=== PATIENT | male | born 1950 | race Caucasian/White ===

== ENCOUNTER → 2019-10-09 13:15 | Outpatient (POV) | payer MEDICARE, OTHER, SELFPAY | PROVIDERS: Visit Provider Nurse Practitioner Family | DX: Z00.00 Encounter for general adult medical examination without abnormal findings (principal) ==

== ENCOUNTER → 2019-12-05 14:42 | Outpatient (CLI) | payer MEDICARE, OTHER, SELFPAY | PROVIDERS: PCP Family Medicine; Visit Provider Family Medicine | DX: Z03.818 Encounter for observation for suspected exposure to other biological agents ruled out (principal) | CPT/HCPCS: U0003 ==

== ENCOUNTER 2023-11-23 10:10 | Outpatient (CLI) | payer MEDICARE, OTHER, SELFPAY ==
[2023-11-23 10:43] LABS: Basophils % 0.8 % (0.1-2.0); Eosinophils # 0.3 K/mm3 (0.0-0.4); Eosinophils % 5.5 % (0.1-12.0); Hematocrit 48.1 % (42.0-52.0); Hemoglobin 15.7 g/dL (14.1-18.0); Lymphocytes # 1.4 K/mm3 (0.7-4.5); Lymphocytes % 28.5 % (10-50); Mean Corpuscular HGB Conc 32.7 g/dL (31.8-35.4); Mean Corpuscular Hemoglobin 31.2 pg (27.0-31.2); Mean Corpuscular Volume 95.5 fl (80-94); Mean Platelet Volume 8.5 fl (7.4-10.4); Monocytes # 0.2 K/mm3 (0.1-1.0); Monocytes % 4.8 % (1.7-9.3); Neutrophils % 60.3 % (37.0-80.0); Platelet Count 165 K/mm3 (142-424); Red Blood Count 5.04 M/mm3 (4.60-6.20)
[2023-11-23 10:56] LABS: Prothrombin Time 11.2 seconds (10.1-12.5)
[2023-11-23 11:51] LABS: Alanine Aminotransferase 23 U/L (12-78); Albumin Level 4.3 g/dl (3.5-5.0); Albumin/Globulin Ratio 1.7 (1.1-1.8); Alkaline Phosphatase 74 U/L (38-126); Aspartate Amino Transferase 40 U/L (17-59); Bilirubin,Total 0.6 mg/dl (0.2-1.3); Blood Urea Nitrogen 13 mg/dl (9-20); Calcium 9.8 mg/dl (8.4-10.2); Carbon Dioxide 32 mmol/L (22.0-30.0); Chloride 101 mmol/L (98-107); Estimated Glomerular Filt Rate 83 ml/min (>60); GFR (African American) 100 ML/MIN (>60); Globulin 2.5 g/dL (1.3-3.2); Glucose 170 mg/dl (74-100); Sodium 138 mmol/L (136-145); Total Protein,Serum 6.8 g/dl (6.3-8.2)
[2023-11-24 12:25] LABS: AFP, Tumor Marker 5.8 ng/mL (0.0-8.4)
[2023-11-26 05:14] LABS: ALT (SGPT) P5P 19 IU/L (0-55); Alpha 2-Macroglobulins, Qn 236 mg/dL (110-276); Apolipoprotein A-1 149 mg/dL (101-178); Bilirubin, Total 0.3 mg/dL (0.0-1.2); Fibrosis Score 0.31 (0.00-0.21); GGT 30 IU/L (0-65); Haptoglobin 159 mg/dL (34-355); Necroinflammat Activity Grade A0-No activity (.); Necroinflammat Activity Score 0.07 (0.00-0.17)
== END 2023-11-23 23:59 | disposition home or self-care (01) ==
LOC: LAB 10:12
PROVIDERS: PCP Family Medicine; Visit Provider Internal Medicine Gastroenterology
DX: K74.60 Unspecified cirrhosis of liver (principal); K74.69 Other cirrhosis of liver; B19.20 Unspecified viral hepatitis C without hepatic coma
CPT/HCPCS: 36415; 80053; 81517; 82105; 85025; 85610

== ENCOUNTER 2024-11-29 09:52 | Outpatient (CLI) | payer MEDICARE, OTHER, SELFPAY ==
[2024-11-29 10:22] LABS: Hematocrit 46.4 % (42.0-52.0); Hemoglobin 15.8 g/dL (14.1-18.0); Immature Granulocytes % 0.2 %; Mean Corpuscular HGB Conc 34.1 g/dL (31.8-35.4); Mean Corpuscular Hemoglobin 30.9 pg (27.0-31.2); Mean Corpuscular Volume 90.6 fl (80-94); Nucleated Red Blood Cells % 0 %; Platelet Count 200 K/mm3 (142-424); Red Blood Count 5.12 M/mm3 (4.60-6.20); Red Cell Distribution Width-SD 42.6 fL; White Blood Count 4.4 K/mm3 (4.8-10.8)
[2024-11-29 10:36] LABS: INR 1.07 (0.9-1.1); Prothrombin Time 11.8 seconds (10.1-12.5)
[2024-11-29 11:26] LABS: Albumin Level 4.1 g/dl (3.5-5.0); Chloride 99 mmol/L (98-107); Potassium 4.6 mmoL/L (3.5-5.1); Sodium 139 mmol/L (136-145)
[2024-11-29 11:29] LABS: Alanine Aminotransferase 21 U/L (12-78); Albumin/Globulin Ratio 1.6 (1.1-1.8); Alkaline Phosphatase 89 U/L (38-126); Anion Gap 11.6 mEq/L (5-15); Aspartate Amino Transferase 34 U/L (17-59); Bilirubin,Total 0.6 mg/dl (0.2-1.3); Calcium 9.0 mg/dl (8.4-10.2); Carbon Dioxide 33 mmol/L (22.0-30.0); Globulin 2.6 g/dL (1.3-3.2); Glucose 127 mg/dl (74-100); Total Protein,Serum 6.7 g/dl (6.3-8.2)
[2024-11-29 13:08] LABS: Blood Urea Nitrogen 15 mg/dl (9-20); Creatinine,Serum 1.10 mg/dl (0.66-1.25); Estimated Glomerular Filt Rate 65 ml/min (>60); GFR (African American) 79 ML/MIN (>60)
== END 2024-11-29 23:59 | disposition home or self-care (01) ==
LOC: LAB 09:53
PROVIDERS: PCP Family Medicine; Visit Provider Internal Medicine Gastroenterology
DX: K74.00 Hepatic fibrosis, unspecified (principal); K74.69 Other cirrhosis of liver; B19.20 Unspecified viral hepatitis C without hepatic coma; Z86.19 Personal history of other infectious and parasitic diseases
CPT/HCPCS: 36415; 80053; 82105; 85025; 85610

== ENCOUNTER 2024-12-06 09:05 | Outpatient (CLI) | payer MEDICARE, SELFPAY ==
--- OUTSIDE RECORDS SUMMARY | 2024-12-06 09:20 | XMS_ITS | Clinical Summary ---
Author Organization [facility] Address [address] [place] [address] Care Team Providers Care Yarn Sizer Name Role Phone Ramakrishna Vigil MD Primary Care Provider [phone] Allergies No known active allergies Medications metFORMIN (Glucophage) 500 MG tablet Take 1 tablet (500 mg) by mouth 1 (one) time each day with breakfast. 1 Active metoprolol succinate XL (Toprol-XL) 50 MG 24 hr tablet Take 1 tablet (50 mg) by mouth 1 (one) time each day. 1 Active lisinopril 20 MG tablet Take 1 tablet (20 mg) by mouth 1 (one) time each day. Active MULTIPLE VITAMIN PO Take 1 tablet by mouth 1 (one) time each day. Active lactobacillus (Culturelle Immunity Support) capsule Take 1 capsule by mouth 1 (one) time each day. Active Calcium Polycarbophil (KONSYL FIBER PO) Take by mouth 1 (one) time each day. powder Active Alpha-Lipoic Acid 200 MG capsule Take by mouth 1 (one) time each day. Active polyethylene glycol (Miralax) 17 g packet Take 17 g by mouth 1 (one) time each day. Active gabapentin (Neurontin) 100 MG capsule Take 1 capsule (100 mg) by mouth 3 (three) times a day. If this medication makes you drowsy you may take it only at bedtime 30 capsule 4 Active Additional Information Patient not taking.Reported on 10/11/2023 acetaminophen (Tylenol Extra Strength) 500 MG tablet Take 2 tablets (1,000 mg) by mouth every 8 (eight) hours. 100 tablet 4 Active Additional Information Patient not taking.Reported on 10/11/2023 Active Problems Problem Noted Date Diagnosed Date Primary osteoarthritis of one knee, right 2022 Osteoarthritis of left knee, unspecified osteoarthritis type 01/22/2022 Primary osteoarthritis of left knee 10/13/2021 Overview (10/13/2021): Added automatically from request for surgery [id number] Malignant tumor of prostate 07/05/2015 Impotence 07/05/2015 Cirrhosis of liver 01/29/2015 Family History Medical History Relation Name Comments Diabetes Father Hypertension, benign Father Diabetes Maternal Grandmother Anesthesia problems Neg Hx Malig Hyperthermia Neg Hx Relation Name Status Comments Father Maternal Grandmother Social History Tobacco Use Types Packs/Day Years Used Date Smoking Tobacco: Former Cigarettes 1.5 15 1 03/25/1971 - 01/22/1987 Passive Smoke Exposure: Never Smokeless Tobacco: Never Tobacco Cessation:Counseling Given: Not Answered Comments:QUIT 30 YRS AGO. Alcohol Use Standard Drinks/Week Comments Never 0 (1 standard drink = 0.6 oz pur e alcohol) CAGE ASSESSMENT Answer Date Recorded Cage unable to access Not on file 01/22/2022 Cage max number of drinks Not on file 2021 Cage Beverages a week Not on file 01/22/2022 Have you ever felt you should CUT down on your d rinking? 0 01/22/2022 Have you been ANNOYED by people criticizing your drinking? 0 01/22/2022 Have you felt GUILTY about your drinking? 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 0 01/22/2022 CAGE Questionnaire Score 0 022 Sex and Gender Information Value Date Recorded Sex Assigned at Not on file Legal Sex Male 6:30 PM EDT Gender Identity Not on file Sexual Orientation Not on file Last Filed Vital Signs Vital Sign Reading Time Taken Comments Blood Pressure 130/78 10/11/2023 2:19 PM EDT Pulse 87 10/11/2023 2:19 PM EDT Temperature 36.5 C (97.7 F) 03/09/2023 3:11 PM EST Respiratory Rate 16 03/09/2023 3:11 PM EST Oxygen Saturation 98% 10/11/2023 2:19 PM EDT Inhaled Oxygen Concentration - - Weight 81.3 kg (179 lb 3.7 oz) 10/11/2023 2:19 P M EDT Height 170.2 cm (5' 7 ) 10/11/2023 2:19 PM EDT Body Mass Index 28.07 10/11/2023 2:19 PM EDT Plan of Treatment Health Maintenance Due Date Last Done Comments [facility]-Depression Screening 1950 [facility]-Hepatitis C Screening 1950 [facility]-Medicare Annual Wellness (AWV) 1950 [facility]-Infant/Child/Adol SDOH Screenings 1950 [facility]- SDOH Screenings 1968 [facility]-Adult SDOH Screenings 1968 [facility]-Hepatitis A Vaccines (1 of 2 - Risk 2-dose series) 1969 [facility]-Pneumococcal Vaccine: 50+ Years (1 of 2 - PCV) 1969 [facility]-Zoster Vaccines (1 of 2) 1969 CT Colonography 07/03/1995 Colonoscopy 07/03/1995 FIT-DNA 07/03/1995 FIT 07/03/1995 FOBT 07/03/1995 Sigmoidoscopy 07/03/1995 [facility]-Colorectal Cancer Screening 07/03/1995 [facility]-DTaP,Tdap,and Td Vaccines (1 - Tdap) 05/06/1996 05/05/1996 [facility]-RSV Vaccine: 60+ Years or (1 - Risk 60-74 years 1-dose series) 2010 [id number] Vaccine ( season) 2024 11/27/2021, 06/03/2021, 12/17/2020, Additional history exists [facility]-Influenza Vaccine (#1) 2024 [facility]-Diabetes: Hemoglobin A1C Discontinued 01/12/2022 [facility]-Obesity Intervention Completed 024, 04/26/2023, 03/24/2023, Additional history exists HPV Vaccines Aged Out No longer eligi ble based on patient's age to complete this topic [facility]-HIB Vaccines Aged Out No longer e ligible based on patient's age to complete this topic [facility]-IPV Vaccines Aged Out No longer e ligible based on patient's age to complete this topic [facility]-Rotavirus Vaccines Aged Out No lo nger eligible based on patient's age to complete this topic Medical Devices Implanted Type Area Butadiene Converter Operator Device Identifier Shelf Expiration Date Model / Serial / Lot Cement Palacos - [id number] Implanted:Qty: 2 on 01/22/2022 by Romel Lincoln MD at [facility] Cement Left: Knee [id number] 07/22/2026 [id number] / / [id number] Chg Femoral Legion Cr Oxin Sz6 - [id number] Implanted:Qty: 1 on 01/22/2022 by Romel Lincoln MD at [facility] Knee Left: Knee [employer]hew [employer]-[id number] 10/04/2031 [id number] / / [id number] Stem Legion Xlp Cr High Sz5-6 10mm - [id number] Implanted:Qty: 1 on 01/22/2022 by Romel Lincoln MD at [facility] Knee Left: Knee [employer]-[id number] 11/17/2030 [id number] / / [id number] Chg Patella Gii Oval Resurfaci - [id number] Implanted:Qty: 1 on 01/22/2022 by Romel Lincoln MD at [facility] Knee Left: Knee [employer]-[id number] 09/21/2031 [id number] / / [id number] Chg Tibial Gns Ii Cmt Size 5 L - [id number] Implanted:Qty: 1 on 01/22/2022 by Romel Lincoln MD at [facility] Knee Left: Knee [employer]-[id number] 10/26/2031 [id number] / / [id number] Chg Insert Lgn Cr Hg Fx Xlpe S - [id number] Implanted:Qty: 1 on 03/09/2023 by Romel Lincoln MD at [facility] Right: Knee [employer]-[id number] 01/04/2026 [id number] / / [id number] Chg Femoral Legion Cr Oxin Sz6 - [id number] Implanted:Qty: 1 on 03/09/2023 by Romel Lincoln MD at [facility] Right: Knee [employer]-[id number] 08/01/2032 [id number] / / [id number] Cement Palacos - [id number] Implanted:Qty: 1 on 03/09/2023 by Romel Lincoln MD at [facility] Right: Knee [employer]-[id number] 05/23/2027 [id number] / / [id number] Cement Palacos - [id number] Implanted:Qty: 1 on 03/09/2023 by Romel Lincoln MD at [facility] Right: Knee [employer]-[id number] 05/23/2027 [id number] / / [id number] Chg Tibial Gns Ii Cmt Size 5 R - [id number] Implanted:Qty: 1 on 03/09/2023 by Romel Lincoln MD at [facility] Right: Knee [employer]-[id number] 10/01/2032 [id number] / / [id number] Chg Patella Gii Oval Resurfaci - [id number] Implanted:Qty: 1 on 03/09/2023 by Romel Lincoln MD at [facility] Right: Knee [employer]-[id number] 11/11/2032 [id number] / / [id number] Procedures Procedure Name Priority Date/Time Associated Diagnosis Comments HEMOGLOBIN A1C Routine 01/12/2022 11:52 AM EST Preoperative testing Type 2 diabetes mellitus without complication, without long-term current use of insulin ([facility]) from Last 3 Months or Most Recently Relevant to Health Maintenance Results * Hemoglobin A1c (01/12/2022 11:52 AM EST) Hemoglobin A1c 5.4 <5.7 % 01/12/2022 3:54 PM EST [facility] Blood Venous blood specimen / Unknown Venipuncture / Unknown 01/12/2022 11:52 AM EST 01/12/2022 11:52 AM EST Narrative [facility] - 01/12/2022 3:54 PM EST HA1C Interpretive Data: Diagnosis of Diabetes: Diabetic > or = 6.5% Pre-diabetic 5.7 to 6.4% Non-diabetic < or = 5.6% Glycemic Targets for Type I and Type II Diabetics: Non- Adults <7.0% Adults <6.0% Children and Adolescents <7.5% Source: [place] [employer]. Standards of medical care in diabetes,2017. Diabetes Care.2017:40 (suppl 1):S1-S135. HbA1c assay performed by an ion-exchange chromatography method that is certified traceable to the DCCT. us Romel Lincoln MD LAB BLOOD ORDERABLES Final Re sult [facility] [address] [place] [phone] from Last 3 Months or Most Recently Relevant to Health Maintenance Insurance MEDICARE [facility] [place] [id number] Advance Directives * Full Code (Latest Code Status on File) Date Activated Date Inactivated Comments 03/09/2023 9:07 AM 03/11/2023 4:05 AM Question Answer Comments Patient has decision-making capacity? Yes * Full Code Date Activated Date Inactivated Comments 01/22/2022 11:31 AM 01/22/2022 10:40 PM Question Answer Comments Patient has decision-making capacity? Yes * Full Code Date Activated Date Inactivated Comments 01/22/2022 9:46 AM 01/22/2022 11:31 AM Question Answer Comments Patient has decision-making capacity? Yes Care Teams Yarn Sizer Relationship Specialty Start Date End Date Raamkrishna Vigil MD [address] [address] PCP - General Pediatrics 10/01/20
--- NOTE | 2024-12-06 09:30 | US_ITS ---
FINAL REPORT TECHNIQUE: Sonographic images of the right upper quadrant were obtained. CLINICAL HISTORY: Former hepatitis C with cirrhosis FINDINGS: PANCREAS: Obscured. LIVER: Fatty infiltrated. No focal hepatic lesion. No intrahepatic biliary ductal dilatation. GALLBLADDER: No gallstones. No gallbladder wall thickening or pericholecystic fluid. COMMON DUCT: 3 mm. Normal for age. RIGHT KIDNEY: The right kidney measures 11.1 cm. There is no hydronephrosis, mass, or stone. FREE FLUID: None. IMPRESSION: Fatty liver. Reviewed, Interpreted and Dictated by Paty Orosco MD Transcribed by Brenda Amaro Authenticated and [facility]
== END 2024-12-06 23:59 | disposition home or self-care (01) ==
LOC: RAD 09:06
PROVIDERS: PCP Family Medicine; Visit Provider Internal Medicine Gastroenterology
DX: K74.60 Unspecified cirrhosis of liver (principal); Z86.19 Personal history of other infectious and parasitic diseases
CPT/HCPCS: 76705

== ENCOUNTER 2025-02-05 10:28 | Day surgery (SDC) | payer MEDICARE, SELFPAY ==
--- NOTE | 2025-01-31 07:00 | EXP.HP ---
History of Present Illness *Admission Date: 02/05/25 *History of present illness: Mr. Gomez is a 74-year-old gentleman who is here for screening/surveillance colonoscopy secondary to a personal history of adenomatous colon polyps. His last colonoscopy in December 2018 revealed 2 colon polyps (tubular adenomas x 2) which were removed. He reports no abdominal pain, weight loss, change in his bowel habits or rectal bleeding. He reports no family history of colon cancer. The patient does take a fiber bowel regimen (combined MiraLAX plus Konsyl). The patient does have a history of well compensated cirrhosis (now with hepatic fibrosis stage F2?F3) and former hepatitis C cured with antiviral therapy. The examination is deemed medically necessary for screening/surveillance colonoscopy. The patient has been seen, interviewed and examined prior to the procedure by both myself and the anesthesia provider. [facility] Disclaimer: The information contained in this section may have been updated after the patient was seen, as this information can be updated by other users. Medical History Hepatic fibrosis Hepatitis C HTN (hypertension) Hemorrhoids Diabetes Cirrhosis Surgical History History of knee replacement H/O prostatectomy History of cataract surgery H/O hemorrhoidectomy Family History Father Leukemia Social History (Updated 02/05/25 @ 11:35 by Tanesha Langford CRNA) Smoking Status: Former smoker alcohol intake: never substance use type: unknown current occupational status: retired Travel in the last 8 weeks?: None marital status: Have you lived/traveled outside US in past 30 days?: No Contact w/someone who lives/traveled outside US past 30 days?: No Exposure to someone with infectious disease in past 14 days?: No Do you have a fever (greater than 100.4 F or 38 C)?: No Have you tested positive for COVID-19?: No Exposed to someone with COVID-19 in past 14 days?: No Do you have a sore throat?: No Do you have a cough?: No Do you have any weakness?: No Are you experiencing any nausea/vomitting?: No Do you have any diarrhea?: No Are you experiencing any unusual bleeding?: No Do you have any muscle aches/pain?: No Do you have any abdominal pain?: No Are you experiencing loss of taste or smell?: No Other Medical History Have you received the Pneumonia Vaccine: No Review of Systems Review of Systems Review of systems (narrative): Negative *Cardiovascular Comments: Negative *Gastrointestinal Comments: Negative *Genitourinary Comments: Negative *Musculoskeletal Comments: Negative *Neurologic Comments: Negative Meds Home Medications and Allergies Home Medications ?Medication ?Instructions ?Recorded ?Confirmed ?Type alpha lipoic acid 200 mg capsule 200 mg PO DAILY 11/23/23 02/05/25 History aspirin 81 mg capsule 81 mg PO DAILY 11/23/23 02/05/25 History lisinopril 20 mg tablet 20 mg PO DAILY 11/23/23 02/05/25 History metformin 500 mg tablet 500 mg PO DAILY 11/23/23 02/05/25 History metoprolol tartrate 50 mg tablet 50 mg PO DAILY 11/23/23 02/05/25 History vitamin E (dl, acetate) 180 mg 180 mg PO DAILY 11/23/23 02/05/25 History (400 unit) capsule Saccharomyces boulardii 250 mg 250 mg PO DAILY 11/29/24 02/05/25 History capsule (Digest Probiotic (S.boulardii)) multivitamin 1 tab PO DAILY 11/29/24 02/05/25 History omeprazole 20 mg tablet,delayed 20 mg PO .Qotherday 11/29/24 02/05/25 History release polyethylene glycol 3350 17 17 g PO DAILY 11/29/24 02/05/25 History gram/dose oral powder (Miralax) psyllium husk (with sugar) 3 1 tbsp PO DAILY 11/29/24 02/05/25 History gram/12 gram oral powder (Konsyl (sugar)) sodium,potassium,mag sulfates 17.5 See Rx Instructions PO .COMPLEX 01/23/25 02/05/25 Rx gram-3.13 gram-1.6 gram oral soln #354 mL (Suprep Bowel Prep Kit) New Prescriptions to Start Prescriptions: Allergies Allergy/AdvReac Type Severity Reaction Status Date / Time No Known Allergies Allergy Verified 02/05/25 10:56 Exam *Routine HEENT Exam Head: Present normocephalic Eye: Present EOMI and PERRL ENT: Present mucous membranes moist *Routine Neck Exam Neck: Present supple *Routine Respiratory Exam Respiratory: Present CTA bilaterally *Routine Cardiovascular Exam Cardiovascular: Present RRR *Routine Abdominal Exam Abdominal: Present soft and normoactive bowel sounds; Absent tenderness *Routine Rectal Exam Rectal:: deferred *Routine Genitalia Exam Genitalia:: deferred *Routine Extremities Exam Extremities: Absent cyanosis, clubbing or edema *Routine Skin Exam Skin: Present warm; Absent rash *Routine Neurological Exam Neurological: Present alert and oriented X3 Assessment and Plan *Assessment and plan (1) Personal history of adenomatous and serrated colon polyps: Status: Acute Category: Medical Code(s): Z86.0101 - Personal history of adenomatous and serrated colon polyps (2) Screening for colon cancer: Status: Acute Category: Medical Code(s): Z12.11 - Encounter for screening for malignant neoplasm of colon Plan A/P: 1. Personal history of adenomatous colon polyps is the preprocedural diagnosis. The patient will be anesthetized/sedated using MAC sedation. The patient has been seen and examined. Cardiac and lung assessment prior to the examination is stable. Proceed with planned screening/surveillance colonoscopy.
[2025-02-02 15:04] VITALS: BMI 27.3
--- NOTE | 2025-02-05 06:46 | HMH.PROCNOTE ---
[facility] Procedure Note Date: 02/05/25 Time: 12:02 Procedure Note:: Colonoscopy Procedure Report: Colonoscopy with cold snare polypectomy Endoscopist: Ranjit Bui II, MD Referring physician: Romel Peterson MD Date of Procedure: February 05, 2025 Equipment: Olympus [id number] adult colonoscope Sedation: MAC sedation Indication: Mr. Gomez is a 74-year-old gentleman who is here for screening/surveillance colonoscopy secondary to a personal history of adenomatous colon polyps. His last colonoscopy in December 2018 revealed 2 colon polyps (tubular adenomas x 2) which were removed. He reports no abdominal pain, weight loss, change in his bowel habits or rectal bleeding. He reports no family history of colon cancer. The patient does take a fiber bowel regimen (combined MiraLAX plus Konsyl). The patient does have a history of well compensated cirrhosis (now with hepatic fibrosis stage F2?F3) and former hepatitis C cured with antiviral therapy. The examination is deemed medically necessary for screening/surveillance colonoscopy. Procedure: Prior to the procedure, a history and physical exam was performed, and patient's medications and allergies were reviewed. The risks, benefits and alternatives of the sedation and procedure were discussed with the patient. All questions were answered and informed consent was obtained. The patient was brought to the procedure room. Patient identification and proposed procedure were verified by the physician and the nurse. The patient was placed in a left lateral decubitus position and the scope was passed under direct vision. Throughout the procedure, the patient's blood pressure, pulse, and oxygen saturations were monitored continuously. The colonoscopy was accomplished without difficulty. The patient tolerated the procedure well. Findings: On digital rectal examination there was normal rectal tone. There were no external hemorrhoids. There was no palpable prostate. The colonoscope was introduced through the anal canal to the rectum and advanced to the cecum. The ileocecal valve and appendiceal orifice were identified. The scope was advanced a short distance into the ileum which appeared grossly normal. The scope was then withdrawn into the colon. There were 2 diminutive polyps (descending x 2 (3 and 3 mm)). Both of these were removed via cold snare polypectomy. The remaining cecum, ascending, transverse, descending, sigmoid and rectum were grossly normal. There were no other mucosal abnormalities identified. Upon retroflexion within the rectum there were grade 1 internal hemorrhoids. The preparation was excellent throughout with Thurman Preparation Score of 9. The cecal time was 12 minutes. Impression: 1. Diminutive descending colon polyps x 2 (3 and 3 mm) Plan: I will follow-up the polyp histology. I am not convinced that he will require any further preventative/surveillance colonoscopy.
[2025-02-05 11:06] VITALS: BP 154/96; PULSE 65; RESP 16; TEMP 36.2; O2SAT 99; BMI 27.3
[2025-02-05] MEDS: LACTATED RINGERS 1000ML 1,000 ML 50 ML IV (11:15)
[2025-02-05 11:16] LABS: POC Glucose,Bedside 118 gm/dL (70-110)
--- NOTE | 2025-02-05 11:34 | EXP.ANES.CKL ---
[facility] Disclaimer: The information contained in this section may have been updated after the patient was seen, as this information can be updated by other users. Medical History Hepatic fibrosis Hepatitis C HTN (hypertension) Hemorrhoids Diabetes Cirrhosis Surgical History History of knee replacement H/O prostatectomy History of cataract surgery H/O hemorrhoidectomy Family History Father Leukemia Social History Smoking Status: Former smoker alcohol intake: never substance use type: unknown current occupational status: retired Travel in the last 8 weeks?: None marital status: [facility] Anesthesia Checklist Patient Identification Patient Identification: Arm Band and Verbal (Name & ) Structural Data Admitted From: Home Planned Operative Procedure/s: colonscopy Consent for Planned Operative Procedure(s) Verified: Yes Verified Documents: Surgical Consent and History and Physical NPO Status Verified Time NPO: 00:00 Additional verifications Anesthesia Reactions: No Previous Colonoscopy: Yes Airway Assessment Mallampati Score:: Class II Dentition: Dentures-good fit Neurological Assessment Level of Consciousness: Awake, Alert and Appropriate Hx Seizures: No Numbness or tingling in extremities: No Anesthesia Plan Anesthesia Risk discussed: Yes Anesthesia Plan: Verified ASA Class: II Anesthesia Type: MAC
[2025-02-05 12:03] VITALS: BP 105/67; PULSE 59; RESP 18; TEMP 36.4; O2SAT 96
[2025-02-05 12:13] VITALS: BP 100/70; PULSE 64; O2SAT 95
[2025-02-05 12:23] VITALS: BP 102/57; PULSE 65; O2SAT 94
[2025-02-05 12:33] VITALS: BP 97/69; PULSE 62; O2SAT 97
== END 2025-02-05 12:33 | disposition home or self-care (01) ==
PROVIDERS: PCP Family Medicine; Visit Provider Internal Medicine Gastroenterology
PROC: 0DJD8ZZ Inspection of Lower Intestinal Tract, Via Natural or Artificial Opening Endoscopic (ICD-10-PCS; CPT 45378; principal; 2025-02-05 12:00)
DX: Z12.11 Encounter for screening for malignant neoplasm of colon (principal); K63.5 Polyp of colon; K64.0 First degree hemorrhoids; E11.9 Type 2 diabetes mellitus without complications; I10 Essential (primary) hypertension; Z86.0101 Personal history of adenomatous and serrated colon polyps; Z87.891 Personal history of nicotine dependence; Z79.82 Long term (current) use of aspirin; Z79.84 Long term (current) use of oral hypoglycemic drugs
CPT/HCPCS: 45385; 82962; 88305; J2003; J2704; J7120